=== PATIENT | female | born 1960 | race African-American/Black ===

== ENCOUNTER 2016-06-21 11:45 | Day surgery (SDC) | payer BC ==
[~2016-06-21 11:45] MED LIST: ALIGN4 MG PO; MULTIPLE VIT PO; PROTONIX PO; SYN075 PO; VITAMIN D1000 UNI1 PO
== END 2016-06-21 17:14 | disposition home or self-care (01) ==
LOC: SDC 11:45
PROVIDERS: Otolaryngology
PROC: 0CTPXZZ Resection of Tonsils, External Approach (ICD-10-PCS; principal; 2016-06-21 13:15)
DX: J35.01 Chronic tonsillitis (principal); E03.9 Hypothyroidism, unspecified; K21.9 Gastro-esophageal reflux disease without esophagitis; Z98.890 Other specified postprocedural states
CPT/HCPCS: 80048; 85014; 85018; 88304; 93005; A9270-GY; J0360; J0690; J2250; J2405; J2710; J3010

== ENCOUNTER 2016-12-27 06:49 | Day surgery (SDC) | payer BC ==
[~2016-12-27] VITALS: Ht 170.2 cm; Wt 59.9 kg
--- NOTE | ~2016-12-27 | EGD ---
EGD REPORT [facility] [address] [place] [address] NAME: TORSTEN SZYMANSKI : 56 STATUS : REG [facility]#: [id number] AGE: 56 ADM/REG DATE : 12/27/16 MR#: [id number] REPORT SERV DATE: 12/27/16 DICTATED BY: SHELBI DUNLAP DATE: 12/27/16 REPORT STATUS : Draft TRANSCRIBED BY: [facility] DATE: 12/27/16 Endoscopy Center Patient Name: Torsten Szymanski Date of : 1960 Attending MD: SHELBI DUNLAP MD Procedure Date No Time: 12/27/2016 Procedure: Upper GI endoscopy Indications: Heartburn, Suspected esophageal reflux, Chronic cough Referring MD: Vashti Steele Medicines: as per anesthesia Complications: No immediate complications. Procedure: Pre-Anesthesia Assessment: - ASA Grade Assessment: II - A patient with mild systemic disease. After obtaining informed consent, the endoscope was passed under direct vision. Throughout the procedure, the patient's blood pressure, pulse, and oxygen saturations were monitored continuously. The GIF [id number] was introduced through the mouth, and advanced to the third part of duodenum. The upper GI endoscopy was accomplished without difficulty. The patient tolerated the procedure. Findings: The examined esophagus was normal. The entire examined stomach was normal. The cardia and gastric fundus were normal on retroflexion. The examined duodenum was normal. Impression: - Normal esophagus. - Normal stomach. - Normal examined duodenum. Recommendation: - Follow an antireflux regimen. - Continue present medications. Procedure Code(s): --- Professional --- 60127, Esophagogastroduodenoscopy, flexible, transoral; diagnostic, including collection of specimen(s) by brushing or washing, when performed (separate procedure) Diagnosis Code(s): --- Professional --- R12, Heartburn R05, Cough EGD REPORT [place] [address] [place]. [address] NAME: TORSTEN SZYMANSKI : 56 STATUS : REG [facility] PAT#: [id number] AGE: 56 ADM/REG DATE : 12/27/16 MR#: [id number] REPORT SERV DATE: 12/27/16 DICTATED BY: SHELBI DUNLAP. DATE: 12/27/16 REPORT STATUS : Draft TRANSCRIBED BY: [employer] DATE: 12/27/16 CPT copyright 2013 [employer]. All rights reserved. The codes documented in this report are preliminary and upon treasury specialist review may be revised to meet current compliance requirements. SHELBI DUNLAP MD 12/27/2016 8:52 AM This report has been signed electronically. Number of Addenda: 0 Note Initiated On: 12/27/2016 8:[address] [place], [place] [address] [address]
--- NOTE | ~2016-12-27 | EGD ---
EGD REPORT [facility] [address] [place] [address] NAME: TORSTEN SZYMANSKI : 56 STATUS : REG [facility]#: [id number] AGE: 56 ADM/REG DATE : 12/27/16 MR#: [id number] REPORT SERV DATE: 12/27/16 DICTATED BY: SHELBI DUNLAP DATE: 12/27/16 REPORT STATUS : Draft TRANSCRIBED BY: [facility] DATE: 12/27/16 Endoscopy Center Patient Name: Torsten Szymanski Date of : 1960 Attending MD: SHELBI DUNLAP MD Procedure Date No Time: 12/27/2016 Procedure: Colonoscopy Indications: Screening for colorectal malignant neoplasm Referring MD: Vashti Steele Medicines: as per anesthesia Complications: No immediate complications. Procedure: Pre-Anesthesia Assessment: - ASA Grade Assessment: II - A patient with mild systemic disease. After I obtained informed consent, the scope was passed under direct vision. Throughout the procedure, the patient's blood pressure, pulse, and oxygen saturations were monitored continuously. The PCF [id number] was introduced through the anus and advanced to the cecum, identified by appendiceal orifice and ileocecal valve. The colonoscopy was performed without difficulty. The patient tolerated the procedure. The quality of the bowel preparation was adequate to identify polyps. Findings: The perianal and digital rectal examinations were normal. A few small and large-mouthed diverticula were found in the sigmoid colon and in the descending colon. Internal hemorrhoids were found during endoscopy and were mild. Impression: - Diverticulosis in the sigmoid colon and in the descending colon. - Internal hemorrhoids. Recommendation: - Repeat colonoscopy in 10 years for surveillance. Procedure Code(s): --- Professional --- 82775, Colonoscopy, flexible, proximal to splenic flexure; diagnostic, with or without collection of specimen(s) by brushing or washing, with or without colon decompression (separate procedure) Diagnosis Code(s): --- Professional --- K64.8, Other hemorrhoids K57.30, Diverticulosis of large intestine without EGD REPORT [facility] [address] [place] [address] [place]. [address] NAME: TORSTEN SZYMANSKI : 56 STATUS : REG [facility] PAT#: [id number] AGE: 56 ADM/REG DATE : 12/27/16 MR#: [id number] REPORT SERV DATE: 12/27/16 DICTATED BY: SHELBI DUNLAP. DATE: 12/27/16 REPORT STATUS : Draft TRANSCRIBED BY: [employer] DATE: 12/27/16 perforation or abscess without bleeding Z12.11, Encounter for screening for malignant neoplasm of colon CPT copyright 2013 [employer]. All rights reserved. The codes documented in this report are preliminary and upon broaching machine set up operator review may be revised to meet current compliance requirements. SHELBI DUNLAP MD 12/27/2016 8:54 AM This report has been signed electronically. Number of Addenda: 0 Note Initiated On: 12/27/2016 8:13 AM Scope Withdrawal Time 0 hours 8 minutes 49 seconds [address] [facility] [place] [address]
== END 2016-12-27 23:59 | disposition home or self-care (01) ==
LOC: DMU 06:49
PROVIDERS: Internal Medicine Gastroenterology
PROC: 0DJD8ZZ Inspection of Lower Intestinal Tract, Via Natural or Artificial Opening Endoscopic (ICD-10-PCS; principal; 2016-12-27 08:00)
PROC: 0DJ08ZZ Inspection of Upper Intestinal Tract, Via Natural or Artificial Opening Endoscopic (ICD-10-PCS; 2016-12-27 08:00)
DX: Z12.11 Encounter for screening for malignant neoplasm of colon (principal); R12 Heartburn; R05 Cough; K57.30 Diverticulosis of large intestine without perforation or abscess without bleeding; K64.8 Other hemorrhoids; E03.9 Hypothyroidism, unspecified; Z79.52 Long term (current) use of systemic steroids; Z79.899 Other long term (current) drug therapy; Z90.89 Acquired absence of other organs; Z98.890 Other specified postprocedural states